=== PATIENT | female | born 1990 | race Caucasian/White ===

== ENCOUNTER 2018-11-08 19:00 | Emergency (ER) | payer SELFPAY ==
[2018-11-08 19:02] VITALS: BP 114/83; PULSE 114; RESP 16; TEMP 36.6; O2SAT 96
--- NOTE | 2018-11-08 19:31 | ED.GENADUL_ITS ---
Discharge Plan Discharge Details Chief Complaint: DentalOral Clinical Impression: Dental caries, Gingivitis Primary Care Provider: None,None ED Provider: Ronnell Ortiz Home Meds and New Rx's Prescriptions: New penicillin V potassium 500 mg tablet 500 mg PO QID 7 Days Qty: 28 RF: 0 Discharge Instructions Instructions: Dental Caries (ED) Additional Instructions: Here but evaluated for dental pain. You are found to have extensive dental caries along with associated gingivitis. A dental block was given to you today to help provide temporary relief. You must follow-up with a dentist in the area. Take antibiotics as prescribed for the full course. Return should you develop any facial swelling or redness. Medical Decision Making This is a nontoxic-appearing 28-year-old female presenting with left upper dental pain in the setting of severe dental decay along with gingivitis. Vitals stable here. Patient given periapical dental block with good success. No bleeding or complications. Plan is to send home with penicillin V 500 mg p.o. QID. She is new to the area and is working on establishing both her primary care provider along with a dentist. Patient given a list of dentists in the area. Return precautions given. Supportive care with Tylenol and ibuprofen discussed and reviewed. She is stable for discharge at this time HPI General Date/Time Provider Initiated Documentation: 11/08/18 19:30 . HPI Narrative: Patient is a 28-year-old female with significant past medical history for severe dental decay who presents today with left upper tooth pain. Pain has been gradual over the course of several days. She denies any fevers. No facial swelling or redness. She is new to the area and is working on establishing both a primary care provider along with a dentist. She has no known drug allergy Related Data Home Medications Medication Instructions Recorded Confirmed penicillin V potassium 500 mg PO QID 7 Days #28 tab 11/08/18 Previous Rx's Medication Instructions Recorded penicillin V potassium 500 mg PO QID 7 Days #28 tab 11/08/18 Allergies Allergy/AdvReac Type Severity Reaction Status Date / Time divalproex sodium Allergy Severe cardiac Unverified 11/08/18 19:09 [From Depakote] arrest General Stated Complaint: DentalOral JAMILAH: 4 Review of Systems Constitutional Reports as per HPI, Denies anorexia, Denies chills, Denies fever(s), Denies headache(s), Denies lethargy and Denies night sweats Eyes Denies eye discharge ENT Denies bleeding gums, Denies change in voice, Reports dental pain, Denies dry mouth, Denies facial pain, Denies headache(s), Denies hoarseness, Denies lip swelling, Denies mouth lesions, Denies mouth pain and Denies sore throat Neurologic Denies headache(s) Allergic/Immunologic Denies lip swelling PFS Social History Smoking/Tobacco Use Status: Former Tobacco Use Drug use: Never Substance use type: does not use Do you feel safe at home: Yes Do you feel safe in your relationship?: Yes Exam Const General: cooperative, healthy appearing, comfortable and no acute distress Orientation: alert, awake and oriented x3 HENMT Head: normal to inspection Ears: hearing grossly normal bilaterally General nose exam: external nose normal Face and sinus: normal facial exam Mouth: oral mucosae normal Teeth and gingiva: caries, gingiva abnormal edematous and poor dentition Teeth image: 1. Throat: posterior oropharynx normal, tonsils normal and uvula midline Neck Neck: normal visual inspection Resp Effort & Inspection: normal respiratory effort Skin General skin exam: no rashes or lesions noted Course Vital Signs Temperature 36.6 C 11/08/18 19:02 Pulse 114 H 11/08/18 19:02 Respiratory Rate 16 11/08/18 19:02 Blood Pressure 114/83 11/08/18 19:02 Pulse Oximetry 96 11/08/18 19:02 Temperature 36.6 C 11/08/18 19:02 Temperature Source Skin 11/08/18 19:02 Pulse 114 H 11/08/18 19:02 Respiratory Rate 16 11/08/18 19:02 Respiratory Effort 11/08/18 19:11 Blood Pressure 114/83 11/08/18 19:02 Blood Pressure Position Sitting 11/08/18 19:02 Pulse Oximetry 96 11/08/18 19:02 Oxygen Delivery Method Room Air 11/08/18 19:02 Oxygen Flow Rate 0 11/08/18 19:02 Pain Level 8 11/08/18 19:10 Procedures Nerve Block Nerve Block 1: Time out performed: No Local Anesthetic: Lidocaine 1% Amount of anesthesia used (mL): 2 Side: left Intraoral Nerve Block: superior alveolar Procedure Successful: Yes Patient Tolerated Procedure: well Complications: none
[2018-11-08] MEDS: Penicillin V POTASSIUM 500 MG TAB 1000 MG PO (19:45)
== END 2018-11-08 19:52 ==
LOC: ER 19:15
PROVIDERS: Emergency Provider Physician Assistant
DX: K08.89 Other specified disorders of teeth and supporting structures (principal)
CPT/HCPCS: 64450